=== PATIENT | male | born 1970 | race Caucasian/White ===

== ENCOUNTER 2017-02-10 20:55 | Emergency (ER) | payer SELFPAY ==
[~2017-02-10] VITALS: Ht 182.9 cm; Wt 87.6 kg
[2017-02-10 20:57] VITALS: BP 132/86
== END 2017-02-10 21:36 | disposition left against medical advice (07) ==
LOC: ED 21:30
DX: R06.02 Shortness of breath (principal); Z53.21 Procedure and treatment not carried out due to patient leaving prior to being seen by health care provider
CPT/HCPCS: 93005; 99281

== ENCOUNTER 2017-10-28 04:41 | Emergency (ER) | payer SELFPAY ==
[~2017-10-28] VITALS: Ht 185.4 cm; Wt 77.8 kg
[2017-10-28 04:43] VITALS: BP 121/80
== END 2017-10-28 05:30 | disposition home or self-care (01) ==
LOC: ED 05:00
DX: K02.9 Dental caries, unspecified (principal); R09.81 Nasal congestion
CPT/HCPCS: 99283

== ENCOUNTER 2018-01-13 22:33 | Emergency (ER) | payer SELFPAY ==
[~2018-01-13] VITALS: Ht 182.9 cm; Wt 78.1 kg
[2018-01-13 22:35] VITALS: BP 130/81
== END 2018-01-13 23:20 | disposition home or self-care (01) ==
LOC: ED 23:15
DX: K02.9 Dental caries, unspecified (principal); F17.200 Nicotine dependence, unspecified, uncomplicated; M10.9 Gout, unspecified
CPT/HCPCS: 99283

== ENCOUNTER 2018-04-12 09:38 | Emergency (ER) | payer MEDICAID ==
[~2018-04-12] VITALS: Ht 182.9 cm; Wt 88.1 kg
[2018-04-12 09:41] VITALS: BP 139/83
[2018-04-12] MEDS ORDERED: LIDOCAINE-MPF 2%, 2ML ONE (09:59)
[2018-04-12] MEDS ORDERED: LIDOCAINE-MPF 1%, 5ML INFIL ONE (10:00)
== END 2018-04-12 10:22 | disposition home or self-care (01) ==
LOC: ED 10:00
DX: K05.219 Aggressive periodontitis, localized, unspecified severity (principal)
CPT/HCPCS: 41800; 99283

== ENCOUNTER 2018-04-14 09:50 | Emergency (ER) | payer MEDICAID ==
[~2018-04-14] VITALS: Ht 182.9 cm; Wt 87.4 kg
[2018-04-14 09:57] VITALS: BP 125/86
== END 2018-04-14 11:03 | disposition home or self-care (01) ==
LOC: ED 10:57
DX: K02.9 Dental caries, unspecified (principal); K04.7 Periapical abscess without sinus; K08.89 Other specified disorders of teeth and supporting structures
CPT/HCPCS: 41800; 99283

== ENCOUNTER 2018-07-02 15:19 | Emergency (ER) | payer MEDICAID ==
[~2018-07-02] VITALS: Ht 182.9 cm; Wt 89.2 kg
[2018-07-02 16:03] LABS: BASOPHILS # (AUTO) 0.04 x10^3/uL (0-0.1); BASOPHILS % (AUTO) 1 % (0-1); EOSINOPHILS # (AUTO) 0.17 x10^3/uL (0-0.4); EOSINOPHILS % (AUTO) 3 % (1-7); LYMPHOCYTES # (AUTO) 1.82 x10^3/uL (1-3.4); LYMPHOCYTES % (AUTO) 29 % (22-44); MD NO; MEAN CORPUSCULAR HEMOGLOBIN 33.6 pg (27.5-34.5); MEAN CORPUSCULAR HGB CONC 35.2 g/dL (33.2-36.2); MEAN CORPUSCULAR VOLUME 95.3 fL (81-97); MEAN PLATELET VOLUME 8.5 fL (7.4-10.4); MONOCYTES # (AUTO) 0.31 x10^3/uL (0.2-0.8); MONOCYTES % (AUTO) 5 % (2-9); NEUTROPHILS # (AUTO) 3.98 x10^3/uL (1.8-6.8); NEUTROPHILS % (AUTO) 63 % (42-75); PLATELET COUNT 234 x10^3/uL (130-400); RED BLOOD COUNT 4.78 x10^6/uL (4.38-5.82); RED CELL DISTRIBUTION WIDTH 12.9 % (9.4-14.8)
[2018-07-02 16:05] VITALS: BP 116/80
[2018-07-02 16:14] LABS: ANION GAP 8 mmol/L (5-15); CALCIUM 8.5 mg/dL (8.5-10.1); CHLORIDE 109 mmol/L (98-107)
[2018-07-02 16:15] LABS: ALANINE AMINOTRANSFERASE 35 U/L (12-78); ALBUMIN 3.8 g/dL (3.4-5.0); CREATININE 0.99 mg/dL (0.7-1.3)
[2018-07-02 16:16] LABS: ALKALINE PHOSPHATASE 94 U/L (45-117); BILIRUBIN,TOTAL 0.8 mg/dL (0.2-1.0); TOTAL PROTEIN 7.1 g/dL (6.4-8.2)
== END 2018-07-02 16:28 | disposition home or self-care (01) ==
LOC: ED 15:30
DX: M25.562 Pain in left knee (principal); M25.552 Pain in left hip; M25.572 Pain in left ankle and joints of left foot; F15.10 Other stimulant abuse, uncomplicated; M10.9 Gout, unspecified
CPT/HCPCS: 36415; 80053; 85025; 93005; 99285

== ENCOUNTER 2019-02-28 06:27 | Emergency (ER) | payer MEDICAID ==
[~2019-02-28] VITALS: Ht 182.9 cm; Wt 85.7 kg
[2019-02-28 06:31] VITALS: BP 116/74
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
--- NOTE | 2019-02-28 06:47 | NUR ---
REPORT GIVEN TO GUILHERME ROY.
--- NOTE | 2019-02-28 06:47 | NUR ---
received report from Mely pt upright on gurney awake & calm, responds approp to staff, NAD, comfort measures provided, call light within reach, seen by PA.
[2019-02-28] MEDS ORDERED: DIPHENHYDRAMINE 50 MG CAPSULE ONE (06:56)
[2019-02-28] MEDS ORDERED: EPINEPHRINE 1 MG/ML, 1ML ONE (06:56)
[2019-02-28] MEDS ORDERED: EPINEPHRINE 1 MG/ML, 1ML IM ONE (07:00)
[2019-02-28] MEDS ORDERED: DIPHENHYDRAMINE 25 MG CAPSULE PO ONE (07:00)
--- NOTE | 2019-02-28 08:03 | NUR ---
pt remains upright on gurney awake & more comforable, responds approp to staff, NAD, comfort measures provided, call light within reach.
== END 2019-02-28 08:26 | disposition home or self-care (01) ==
LOC: ED 08:00
DX: T78.3XXA Angioneurotic edema, initial encounter (principal); R22.0 Localized swelling, mass and lump, head; K02.9 Dental caries, unspecified
CPT/HCPCS: 96372; 99283; J0171; Q0163

== ENCOUNTER 2019-07-17 13:05 | Emergency (ER) | payer SELFPAY ==
[~2019-07-17] VITALS: Ht 182.9 cm; Wt 86.4 kg
[2019-07-17 13:13] VITALS: BP 118/69
[2019-07-17] MEDS ORDERED: SODIUM CHLORIDE 0.9% 1,000ML IVBOLUS ONE (14:00)
[2019-07-17] MEDS ORDERED: SODIUM CHLORIDE FLUSH 10ML SYR IVF ONE (14:00)
[2019-07-17 14:01] LABS: BASOPHILS # (AUTO) 0.02 x10^3/uL (0-0.1); BASOPHILS % (AUTO) 0 % (0-1); EOSINOPHILS # (AUTO) 0.12 x10^3/uL (0-0.4); EOSINOPHILS % (AUTO) 2 % (1-7); LYMPHOCYTES # (AUTO) 1.55 x10^3/uL (1-3.4); LYMPHOCYTES % (AUTO) 27 % (22-44); MD NO; MEAN CORPUSCULAR HEMOGLOBIN 32.9 pg (27.5-34.5); MEAN CORPUSCULAR HGB CONC 33.9 g/dL (33.2-36.2); MEAN CORPUSCULAR VOLUME 97.1 fL (81-97); MEAN PLATELET VOLUME 7.4 fL (7.4-10.4); MONOCYTES # (AUTO) 0.24 x10^3/uL (0.2-0.8); MONOCYTES % (AUTO) 4 % (2-9); NEUTROPHILS # (AUTO) 3.88 x10^3/uL (1.8-6.8); NEUTROPHILS % (AUTO) 67 % (42-75); PLATELET COUNT 258 x10^3/uL (130-400); RED BLOOD COUNT 4.94 x10^6/uL (4.38-5.82); RED CELL DISTRIBUTION WIDTH 12.2 % (9.4-14.8)
[2019-07-17 14:06] LABS: RAPID INFLUENZA A Negative (Negative); RAPID INFLUENZA B Negative (Negative)
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
--- NOTE | 2019-07-17 14:44 | NUR ---
PT HAS CO OF NOT FEELLING WELL. PT STATES HE THOUGHT HE HAD THE FLU, BUT SYMPTOMS HAVE WORSENED SUCH BODY ACHE, STIFF NECK, AND WEAKENSS. PT STATES SYMPTOMS STARTED SATURDAY. DENIES N/V/D. NO COUGH, DENIES SOB, OR CHEST PAIN. IV ESTABLISHED. BLOOD CULTURES ESTABLISHED.
[2019-07-17 15:07] LABS: ALANINE AMINOTRANSFERASE 39 U/L (12-78); ALBUMIN 3.3 g/dL (3.4-5.0); ANION GAP 3 mmol/L (5-15); CALCIUM 8.6 mg/dL (8.5-10.1); CHLORIDE 106 mmol/L (98-107)
[2019-07-17 15:09] LABS: ALKALINE PHOSPHATASE 128 U/L (45-117); BILIRUBIN,TOTAL 0.2 mg/dL (0.2-1.0); TOTAL PROTEIN 6.7 g/dL (6.4-8.2)
--- NOTE | 2019-07-17 15:46 | NUR ---
Patient/Caregiver given discharge instructions and they have confirmed that they understand the instructions. Patient ambulatory with steady gait.
== END 2019-07-17 16:00 | disposition home or self-care (01) ==
LOC: ED 15:46
DX: J41.1 Mucopurulent chronic bronchitis (principal); E86.0 Dehydration; F17.210 Nicotine dependence, cigarettes, uncomplicated
CPT/HCPCS: 36415; 71045; 80053; 83605; 85025; 87040; 87400; 93005; 99284; J7030

== ENCOUNTER 2019-10-10 01:37 | Emergency (ER) | payer SELFPAY ==
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
== END 2019-10-10 01:45 | disposition left against medical advice (07) ==
LOC: ED 01:40
DX: Z53.21 Procedure and treatment not carried out due to patient leaving prior to being seen by health care provider (principal)